=== PATIENT | female | born 1980 | race Caucasian/White ===

== ENCOUNTER → 2016-12-18 | Outpatient (CLI) | payer OTHER ==
[2016-12-19 08:16] LABS: HIV-1/HIV-2 Ab Screen NONREAC (NON REAC)
== END | disposition home or self-care (01) ==
LOC: LABWHC1 08:28
PROVIDERS: ATTEND Obstetrics & Gynecology
DX: L65.9 Nonscarring hair loss, unspecified (principal); R63.5 Abnormal weight gain; Z13.220 Encounter for screening for lipoid disorders; Z13.1 Encounter for screening for diabetes mellitus
CPT/HCPCS: 36415; 80061; 82947; 84439; 84443; 86780; 87389

== ENCOUNTER → 2018-01-07 | Outpatient (CLI) | payer OTHER ==
[2018-01-07 09:44] LABS: Basophils % (A) 0 %; Eosinophils # (A) 0.1 k/uL (0-0.7); Eosinophils % (A) 2 %; HCT 40.4 % (34.0-46.0); HGB 13.4 gm/dL (11.4-16.0); Lymphocytes # (A) 1.6 k/uL (1.0-4.8); Lymphocytes % (A) 33 %; MCH 30.3 pg (25.0-35.0); MCHC 33.2 g/dL (31.0-37.0); MCV 91.2 fL (80.0-100.0); Mean Platelet Volume 7.5; Monocytes # (A) 0.4 k/uL (0-1.0); Monocytes % (A) 7 %; Neutrophils # (A) 2.8 k/uL (1.3-7.7); Neutrophils % (A) 56 %; Platelet Count 251 k/uL (150-450); RBC 4.43 m/uL (3.80-5.40); RDW 12.6 % (11.5-15.5); WBC 4.9 k/uL (3.8-10.6)
[2018-01-07 10:09] LABS: ALT 18 U/L (9-52); AST 23 U/L (14-36); Albumin 4.3 g/dL (3.5-5.0); Alkaline Phosphatase 66 U/L (38-126); Anion Gap 10 mmol/L; Blood Urea Nitrogen 9 mg/dL (7-17); Calcium 9.4 mg/dL (8.4-10.2); Carbon Dioxide 26 mmol/L (22-30); Chloride 105 mmol/L (98-107); Cholesterol 215 mg/dL (<200); Glucose 81 mg/dL (74-99); HDL Cholesterol 76 mg/dL (40-60); LDL Cholesterol,Calculated 123 mg/dL (0-99); Potassium 4.2 mmol/L (3.5-5.1); Sodium 141 mmol/L (137-145); Total Bilirubin 0.4 mg/dL (0.2-1.3); Triglycerides 81 mg/dL (<150)
--- NOTE | 2018-01-07 10:48 | XR ---
EXAMINATION TYPE: XR chest 2V DATE OF EXAM: 01/07/2018 CLINICAL HISTORY: R06.00 Dyspenea,M54.5 LBP TECHNIQUE: Frontal and lateral views of the chest are obtained. COMPARISON: None FINDINGS: There is no focal air space opacity, pleural effusion, or pneumothorax seen. The cardiac silhouette size is within normal limits. The osseous structures are intact. IMPRESSION: No acute cardiopulmonary process.
--- NOTE | 2018-01-07 10:51 | XR ---
EXAMINATION TYPE: XR lumbar spine 2 or 3V DATE OF EXAM: 01/07/2018 CLINICAL HISTORY: pain TECHNIQUE: Three views of the lumbar spine are submitted. COMPARISON: None. FINDINGS: There are 5 lumbar type vertebral bodies identified. The lumbar spine shows satisfactory alignment w ithout evidence of acute fracture or dislocation. Vertebral body heights are within normal limits. Disc spaces are within normal limits. The overlying soft tissue appears unremarkable. IMPRESSION: No acute fracture or dislocation is seen in the lumbar spine. ICD 10 NO FRACTURE, INITIAL EVALUATION
[2018-01-07 11:06] LABS: Erythrocyte Sedimentation Rate 7 mm/hr (0-20)
[2018-01-07 16:27] LABS: Hepatitis B Surface AB- Quant 30.1 mIU/mL; Hepatitis C IgG Antibody Non-Reactive (Non-Reactive)
[2018-01-07 17:50] LABS: HIV AB P24 Non-Reactive (Non-Reactive); HIV P24 AG Non-Reactive (Non-Reactive)
== END | disposition home or self-care (01) ==
LOC: CPPFTMAIN 08:49
PROVIDERS: ATTEND Internal Medicine
DX: R06.00 Dyspnea, unspecified (principal); M54.5 Low back pain; R53.83 Other fatigue; Z11.3 Encounter for screening for infections with a predominantly sexual mode of transmission; Z13.6 Encounter for screening for cardiovascular disorders
CPT/HCPCS: 71046; 72100; 80053; 80061; 84439; 84443; 84481; 85025; 85652; 86706; 86780; 86803; 87340; 87390; 94060; 94726; 94729

== ENCOUNTER 2019-03-26 18:07 | Observation (INO) | payer OTHER ==
[2019-03-26 18:55] LABS: Appearance,Urine Clear (Clear); Bilirubin,Urine Negative (Negative); Blood,Urine Negative (Negative); Color,Urine Colorless; Glucose,Urine (UA) Negative (Negative); Ketones,Urine Negative (Negative); Leukocyte Esterase,Urine Negative (Negative); Nitrite,Urine Negative (Negative); Protein,Urine Negative (Negative); Specific Gravity,Urine 1.004 (1.001-1.035); Urobilinogen,Urine <2.0 mg/dL (<2.0)
[2019-03-26] MEDS ORDERED: SODIUM CHLORIDE 0.9% 1,000 ML IV STA (19:00)
--- NOTE | 2019-03-26 19:14 | ED ---
General Adult HPI <Jed Neely - Last Filed: 03/26/19 21:25> - General Source: patient Mode of arrival: ambulatory Limitations: no limitations <Karen Fraser - Last Filed: 03/26/19 21:59> - General Chief complaint: Recheck/Abnormal Lab/Rx Stated complaint: Weakness, balance issues Time Seen by Provider: 03/26/19 18:42 - History of Present Illness Initial comments: 38 year-old female patient presents to the emergency department today for evaluation of disturbed gait. Patient states that she got out of bed this morning she stood up and immediately had a fall. Patient states that she has felt like she is going to fall throughout the day. Patient states she has tripped over things and fall and a total of 3 times today. Patient states is very abnormal for her. Patient states that her body feels weird like a "feather". Patient denies any dizziness, room spinning, headache, blurred visi on, or double vision. Patient denies any ear pain. Patient states she does play hockey and has had head injuries. States she does wear helmet while playing hockey. She denies any use of anticoagulant medications. Patient denies any numbness or tingling to her extremities. Denies any focal weakness. Patient denies any recent rash, fever, chills, shortness breath, chest pain, abdominal pain, nausea, vomiting, diarrhea, constipation, back pain, hematuria, dysuria, urinary urgency, urinary frequency, or any other complaints. (Karen Fraser) - Related Data Home Medications Medication Instructions Recorded Confirmed ALPRAZolam [Xanax] 0.5 mg PO DAILY PRN 03/26/19 03/26/19 valACYclovir [Valtrex] 500 mg PO HS 03/26/19 03/26/19 Allergies Allergy/AdvReac Type Severity Reaction Status Date / Time No Known Allergies Allergy Verified 03/26/19 21:35 Review of Systems ROS Other: All systems not noted in ROS Statement are negative. <Jed Neely - Last Filed: 03/26/19 21:25> ROS Other: All systems not noted in ROS Statement are negative. <Karen Fraser - Last Filed: 03/26/19 21:59> ROS Statement: Those systems with pertinent positive or pertinent negative responses have been documented in the HPI. Past Medical History Past Medical History: No Reported History History of Any Multi-Drug Resistant Organisms: None Reported Past Surgical History: No Surgical Hx Reported Past Psychological History: No Psychological Hx Reported Smoking Status: Never smoker Past Alcohol Use History: Occasional Past Drug Use History: Marijuana <BriaMoyKaren Marco Antonio - Last Filed: 03/26/19 21:59> General Exam Limitations: no limitations General appearance: alert, in no apparent distress, other (This is a well- developed, well-nourished adult female patient in no acute distress. Vital signs upon presentation are temperature 98.7F, pulse 67, respirations 18, blood pressure 132/89, pulse ox 100% on room air per) Eye exam: Present: normal appearance, PERRL, EOMI, nystagmus (Horizontal bilateral, and vertical with upward gaze.). Absent: scleral icterus, conjunctival injection, periorbital swelling ENT exam: Present: normal exam, normal oropharynx, mucous membranes moist, TM's normal bilaterally Respiratory exam: Present: normal lung sounds bilaterally. Absent: respiratory distress, wheezes, rales, rhonchi, stridor Cardiovascular Exam: Present: regular rate, normal rhythm, normal heart sounds. Absent: systolic murmur, diastolic murmur, rubs, gallop, clicks GI/Abdominal exam: Present: soft, normal bowel sounds. Absent: distended, tenderness, guarding, rebound, rigid Neurological exam: Present: alert, oriented X3, CN II-XII intact Expanded Speech: Present: fluid speech Cranial nerves: EOM's Intact: Normal Motor strength exam: RUE: 5, LUE: 5, RLE: 5, LLE: 5 Psychiatric exam: Present: normal affect, normal mood Skin exam: Present: warm, dry, intact, normal color. Absent: rash <Karen Fraser M - Last Filed: 03/26/19 21:59> Course Vital Signs 03/26/19 03/26/19 03/26/19 18:09 19:54 21:00 Temperature 98.7 F Pulse Rate 67 56 L 67 Respiratory 18 16 16 Rate Blood Pressure 132/89 126/73 119/75 O2 Sat by Pulse 100 96 97 Oximetry EKG Findings - EKG Comments: EKG Findings:: EKG obtained at 1949 shows sinus bradycardia with a ventricular rate of 59, GA interval 182, QRS duration 80, QT 418, QTC 413. No evidence of ST elevation or depression. <Karen Fraser - Last Filed: 03/26/19 21:59> Medical Decision Making - Lab Data Result diagrams: 03/26/19 18:56 03/26/19 18:56 <Jed Neely - Last Filed: 03/26/19 21:25> - Lab Data Result diagrams: 03/26/19 18:56 03/26/19 18:56 - Radiology Data Radiology results: report reviewed, image reviewed <Karen Fraser - Last Filed: 03/26/19 21:59> - Medical Decision Making Case was discussed with practitioner Bria. Chart was reviewed. Case also discussed with Dr. Hale. He will admit covering for Dr. Beach. Patient will have MRI ordered and neurology consult. (Jed Neely) 38 year-old female patient presented to the emergency department today for evaluation of gait disturbance and frequent falls starting this morning around 0800. Physical examination did reveal horizontal and vertical upward gaze nystagmus. Remainder of physical exam is unremarkable. She is otherwise neurologically intact with no focal deficits. Labs reviewed and are unremarkable. She is not . A CT brain was negative for any acute findings. I did discuss the case with my attending Dr. Neely, we'll admit to the hospital for further evaluation by neurology and MRI. Patient will be placed on frequent neurochecks and fall precautions. (Karen Fraser) - Lab Data Lab Results 03/26/19 03/26/19 03/26/19 Range/Units 18:38 18:38 18:56 WBC 6.7 (3.8-10.6) k/uL RBC 4.18 (3.80-5.40) m/uL Hgb 12.5 (11.4-16.0) gm/dL Hct 38.3 (34.0-46.0) % MCV 91.5 (80.0-100.0) fL MCH 29.8 (25.0-35.0) pg MCHC 32.6 (31.0-37.0) g/dL RDW 12.4 (11.5-15.5) % Plt Count 256 (150-450) k/uL Neutrophils % 61 % Lymphocytes % 28 % Monocytes % 8 % Eosinophils % 2 % Basophils % 0 % Neutrophils # 4.1 (1.3-7.7) k/uL Lymphocytes # 1.9 (1.0-4.8) k/uL Monocytes # 0.5 (0-1.0) k/uL Eosinophils # 0.1 (0-0.7) k/uL Basophils # 0.0 (0-0.2) k/uL PT (9.0-12.0) sec INR (<1.2) APTT (22.0-30.0) sec Sodium (137-145) mmol/L Potassium (3.5-5.1) mmol/L Chloride (98-107) mmol/L Carbon Dioxide (22-30) mmol/L Anion Gap mmol/L BUN (7-17) mg/dL Creatinine (0.52-1.04) mg/dL Est GFR (CKD-EPI)AfAm (>60 ml/min/1.73 sqM) Est GFR (CKD-EPI)NonAf (>60 ml/min/1.73 sqM) Glucose (74-99) mg/dL Calcium (8.4-10.2) mg/dL Magnesium (1.6-2.3) mg/dL Total Bilirubin (0.2-1.3) mg/dL AST (14-36) U/L ALT (9-52) U/L Alkaline Phosphatase (38-126) U/L Troponin I (0.000-0.034) ng/mL Total Protein (6.3-8.2) g/dL Albumin (3.5-5.0) g/dL TSH (0.465-4.680) mIU/L Urine Color Colorless Urine Appearance Clear (Clear) Urine pH 7.0 (5.0-8.0) Ur Specific [place] 1.004 (1.001-1.035) Urine Protein Negative (Negative) Urine Glucose (UA) Negative (Negative) Urine Ketones Negative (Negative) Urine Blood Negative (Negative) Urine Nitrite Negative (Negative) Urine Bilirubin Negative (Negative) Urine Urobilinogen <2.0 (<2.0) mg/dL Ur Leukocyte Esterase Negative (Negative) Urine HCG, Qual Not Detected (Not Detectd) 03/26/19 03/26/19 03/26/19 Range/Units 18:56 18:56 18:56 WBC (3.8-10.6) k/uL RBC (3.80-5.40) m/uL Hgb (11.4-16.0) gm/dL Hct (34.0-46.0) % MCV (80.0-100.0) fL MCH (25.0-35.0) pg MCHC (31.0-37.0) g/dL RDW (11.5-15.5) % Plt Count (150-450) k/uL Neutrophils % % Lymphocytes % % Monocytes % % Eosinophils % % Basophils % % Neutrophils # (1.3-7.7) k/uL Lymphocytes # (1.0-4.8) k/uL Monocytes # (0-1.0) k/uL Eosinophils # (0-0.7) k/uL Basophils # (0-0.2) k/uL PT 10.5 (9.0-12.0) sec INR 1.0 (<1.2) APTT 24.0 (22.0-30.0) sec Sodium 141 (137-145) mmol/L Potassium 3.7 (3.5-5.1) mmol/L Chloride 105 (98-107) mmol/L Carbon Dioxide 27 (22-30) mmol/L Anion Gap 9 mmol/L BUN 12 (7-17) mg/dL Creatinine 0.59 (0.52-1.04) mg/dL Est GFR (CKD-EPI)AfAm >90 (>60 ml/min/1.73 sqM) Est GFR (CKD-EPI)NonAf >90 (>60 ml/min/1.73 sqM) Glucose 90 (74-99) mg/dL Calcium 9.4 (8.4-10.2) mg/dL Magnesium 2.1 (1.6-2.3) mg/dL Total Bilirubin 0.4 (0.2-1.3) mg/dL AST 18 (14-36) U/L ALT 17 (9-52) U/L Alkaline Phosphatase 62 (38-126) U/L Troponin I <0.012 (0.000-0.034) ng/mL Total Protein 7.0 (6.3-8.2) g/dL Albumin 4.1 (3.5-5.0) g/dL TSH (0.465-4.680) mIU/L Urine Color Urine Appearance (Clear) Urine pH (5.0-8.0) Ur Specific [place] (1.001-1.035) Urine Protein (Negative) Urine Glucose (UA) (Negative) Urine Ketones (Negative) Urine Blood (Negative) Urine Nitrite (Negative) Urine Bilirubin (Negative) Urine Urobilinogen (<2.0) mg/dL Ur Leukocyte Esterase (Negative) Urine HCG, Qual (Not Detectd) 03/26/19 Range/Units 18:56 WBC (3.8-10.6) k/uL RBC (3.80-5.40) m/uL Hgb (11.4-16.0) gm/dL Hct (34.0-46.0) % MCV (80.0-100.0) fL MCH (25.0-35.0) pg MCHC (31.0-37.0) g/dL RDW (11.5-15.5) % Plt Count (150-450) k/uL Neutrophils % % Lymphocytes % % Monocytes % % Eosinophils % % Basophils % % Neutrophils # (1.3-7.7) k/uL Lymphocytes # (1.0-4.8) k/uL Monocytes # (0-1.0) k/uL Eosinophils # (0-0.7) k/uL Basophils # (0-0.2) k/uL PT (9.0-12.0) sec INR (<1.2) APTT (22.0-30.0) sec Sodium (137-145) mmol/L Potassium (3.5-5.1) mmol/L Chloride (98-107) mmol/L Carbon Dioxide (22-30) mmol/L Anion Gap mmol/L BUN (7-17) mg/dL Creatinine (0.52-1.04) mg/dL Est GFR (CKD-EPI)AfAm (>60 ml/min/1.73 sqM) Est GFR (CKD-EPI)NonAf (>60 ml/min/1.73 sqM) Glucose (74-99) mg/dL Calcium (8.4-10.2) mg/dL Magnesium (1.6-2.3) mg/dL Total Bilirubin (0.2-1.3) mg/dL AST (14-36) U/L ALT (9-52) U/L Alkaline Phosphatase (38-126) U/L Troponin I (0.000-0.034) ng/mL Total Protein (6.3-8.2) g/dL Albumin (3.5-5.0) g/dL TSH 1.040 (0.465-4.680) mIU/L Urine Color Urine Appearance (Clear) Urine pH (5.0-8.0) Ur Specific [place] (1.001-1.035) Urine Protein (Negative) Urine Glucose (UA) (Negative) Urine Ketones (Negative) Urine Blood (Negative) Urine Nitrite (Negative) Urine Bilirubin (Negative) Urine Urobilinogen (<2.0) mg/dL Ur Leukocyte Esterase (Negative) Urine HCG, Qual (Not Detectd) - Radiology Data CT brain without contrast was obtained. Report is reviewed in its entirety. Impression by Dr. Loredo shows negative computed tomography scan of the brain. (Karen Fraser) Disposition <Jed Neely - Last Filed: 03/26/19 21:25> Decision to Admit Reason: Admit from EC Decision Date: 03/26/19 Decision Time: 21:59 <Karen Fraser - Last Filed: 03/26/19 21:59> Clinical Impression: Gait disturbance, Frequent falls Narrative: Concern for CVA (Karen Fraser) Disposition: ADMITTED IP TO THIS [facility] Condition: Serious Referrals: Zaheer Phipps MD [Primary Care Provider] - 1-2 days
[2019-03-26 19:24] LABS: Basophils % (A) 0 %; Eosinophils # (A) 0.1 k/uL (0-0.7); Eosinophils % (A) 2 %; HCT 38.3 % (34.0-46.0); HGB 12.5 gm/dL (11.4-16.0); Lymphocytes # (A) 1.9 k/uL (1.0-4.8); Lymphocytes % (A) 28 %; MCH 29.8 pg (25.0-35.0); MCHC 32.6 g/dL (31.0-37.0); MCV 91.5 fL (80.0-100.0); Mean Platelet Volume 7.2; Monocytes # (A) 0.5 k/uL (0-1.0); Monocytes % (A) 8 %; Neutrophils # (A) 4.1 k/uL (1.3-7.7); Neutrophils % (A) 61 %; Platelet Count 256 k/uL (150-450); RBC 4.18 m/uL (3.80-5.40); RDW 12.4 % (11.5-15.5); WBC 6.7 k/uL (3.8-10.6)
[2019-03-26 19:36] LABS: ALT 17 U/L (9-52); AST 18 U/L (14-36); African American GFR (CKD) >90 (>60 ml/min/1.73 sqM); Albumin 4.1 g/dL (3.5-5.0); Alkaline Phosphatase 62 U/L (38-126); Anion Gap 9 mmol/L; Blood Urea Nitrogen 12 mg/dL (7-17); Calcium 9.4 mg/dL (8.4-10.2); Carbon Dioxide 27 mmol/L (22-30); Chloride 105 mmol/L (98-107); Glucose 90 mg/dL (74-99); Magnesium 2.1 mg/dL (1.6-2.3); Potassium 3.7 mmol/L (3.5-5.1); Sodium 141 mmol/L (137-145); Total Bilirubin 0.4 mg/dL (0.2-1.3)
--- NOTE | 2019-03-26 19:36 | CT ---
EXAMINATION TYPE: CT brain wo con DATE OF EXAM: 03/26/2019 COMPARISON: None HISTORY: weakness, balance issues CT DLP: 1095.4 mGycm. Automated Exposure Control for Dose Reduction was Utilized. TECHNIQUE: CT scan of the head is performed without contrast. FINDINGS: Ventricles and sulci appear normal. There is no mass effect nor midline shift. There is no sign of intracranial hemorrhage. Calvarium is intact. IMPRESSION: Negative CT scan of the brain.
[2019-03-26 19:37] LABS: Prothrombin Time 10.5 sec (9.0-12.0)
[2019-03-26] MEDS ORDERED: ASPIRIN 81 MG PO STA (21:27)
[2019-03-26] MEDS ORDERED: NALOXONE 0.4 MG/ML 1 ML VIAL IV PRN (21:55)
[2019-03-27] MEDS: ALPRAZolam 0.5 MG TAB PO PRN ×2 (00:32→14:06)
[2019-03-27] MEDS: valACYclovir 500 MG TAB PO SCH ×2 (00:32→20:05)
[2019-03-27] MEDS ORDERED: ENOXAPARIN 40 MG/0.4 ML SYRINGE SQ SCH (10:15)
--- NOTE | 2019-03-27 15:45 | MR ---
EXAMINATION TYPE: MR brain wo/w con DATE OF EXAM: 03/27/2019 COMPARISON: CT brain from yesterday HISTORY: abnormal gait TECHNIQUE: Multiplanar, multisequence images of the brain and brainstem is performed without and with IV contras t, utilizing 7 mL intravenous Gadavist . FINDINGS: Diffusion weighted images demonstrate no evidence of a recent infarct or other diffusion ab normality. There is no extra-axial fluid collection or significant white matter signal abnormality. The ventricular system and cisternal spaces are normal in size and appearance. The brain volume is age appropriate. Midline structures demonstrate normal morphology. The craniocervical junction appears within normal limits. Post contrast images demonstrate no abnormal enhancement. The dural venous sinuses appear pa tent. The visualized sinuses are clear. Globes are slightly distorted by artifact on MRI. No suspicio us fluid signal bilateral mastoid air cells. IMPRESSION: Unremarkable study.
--- NOTE | 2019-03-27 18:28 | CONS ---
CONSULTATION DATE OF SERVICE: 03/27/2019 HISTORY OF PRESENT ILLNESS: Thank you for allowing me to evaluate Miriam Kendall, who is a 38-year-old right- handed white female who presented to [facility] [place] for evaluation of gait imbalance which was present upon awakening yesterday morning. The day before these symptoms, the patient was at baseline although states that she felt tired. She states she got her regular 8 hours of sleep, but when she woke up was off balance and "tripping and falling." She states she was not consistently veering in one direction at home and denied any recent trauma. She does play hockey but states that she has not played in the past 2 weeks. She has never had similar symptoms in the past. She denied associated vertigo, diplopia, dysarthria, difficulty chewing/swallowing or focal in the extremities. She denies numbness involving the upper or lower extremities. She feels that strength in the upper extremities is "pretty good" and strength in the lower extremities may be mildly reduced. She denies neck or back pain and denies Lhermitte's phenomenon. She has had no history of transient neurologic dysfunction such as transient monocular blindness, transient focal weakness/numbness in the extremities or Lhermitte's. She denies fever, chills or sweats. She denies urine/stool incontinence, urinary urgency or loss in sensation in the genital/rectal region. She denies any recent viral illness. Today the patient states her balance is better than it was yesterday but not back to baseline. She states when she is up on her feet, she feels "light like a feather." The patient does report a history of depression, anxiety and panic attacks. She is maintained on Prozac and Xanax but admits that she does get anxiety "a lot," particularly characterized by a sensation that she "can't breathe." She states she has good coping mechanisms and has only taken Xanax 3 times over the past month, although states that when she initially was placed on Prozac, she was able to significantly reduce her Xanax consumption. More recently she has had to use this occasionally. She does report significant stress related primarily to her work. 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 She also has a 12-year-old daughter whom she describes as being "mean." ALLERGIES: NO KNOWN DRUG ALLERGIES. HOME MEDICATIONS: 1. Valtrex. 2. Xanax (taken 3 times over the past month). 3. Prozac. PAST MEDICAL HISTORY: 1. Seasonal depression. 2. Anxiety. 3. Panic attacks. 4. Genital herpes. She states when she develops anxiety, she will contact her mother, who will help talk to her. PAST SURGICAL HISTORY: 1. Tonsillectomy. 2. Adenoidectomy. 3. Breast implants. 4. Pre-melanoma skin resections. SOCIAL HISTORY: The patient denied tobacco use and drinks alcohol about 3 times per month. She does vape marijuana but denied any other illicit drug use. She is single with a 12-year-old daughter and lives in a house with her daughter. She is employed as a social director. FAMILY HISTORY: Patient's mother has hypothyroidism. Father has hypertension. She has a cousin with a history of seizures. There is no family history of multiple sclerosis or other neurologic disease. REVIEW OF SYSTEMS: Fourteen systems are reviewed and no additional complaints are identified. The review of systems is documented in the history and physical. PHYSICAL EXAMINATION: When I arrived in the patient's room, she was lying in bed, receptive to the examiner. Mother and friend were at the bedside. The patient's affect is mildly flat and she appears stated age. VITAL SIGNS: Blood pressure is 106/48 with a pulse of 70, respiratory rate 16, temperature 98.1. Weight is 74.5 kg on a 5-foot 8-inch frame. SKIN AND EXTREMITIES: Normal. HEAD AND NECK: No tenderness or signs of trauma. Neck is supple without meningeal signs. The arteries are nontender and without bruits. HEART: Regular rate and rhythm. HIGHER CORTICAL FUNCTION: MENTAL STATUS: The patient was alert and oriented to time, place and person. She was able to name, repeat and read. There was no right/left disorientation, finger agnosia, extinction to double simultaneous stimulation or dysarthria. CRANIAL NERVES II THROUGH XII: II: Pupils are equal and reactive to light symmetrically. No afferent pupillary defect. Visual romero are intact to confrontation, with each eye assessed individually. III, IV, : No ptosis. Extraocular movements are full. No nystagmus. V: Pinprick and light touch intact in all 3 divisions. Motor 5 intact. VII: No facial asymmetry or weakness. VIII: Acuity intact to finger rub. IX, X: Palate ritchie in the midline. XI: Trapezius strength intact. XII: Tongue protruded midline without fasciculation or atrophy. MOTOR EXAMINATION: There is no pronator drift. Normal bulk and tone is noted in all major muscle groups with no involuntary movements noted. Strength is 5/5 throughout. Sensory intact to pinprick and light touch in all extremities. There was no sensory level across the chest. Vibratory sensation was entirely intact at the great toes. is intact. Reflexes, right side listed first: biceps 2,2; brachioradialis 1,1; triceps 2,2; patella 2,2; ankle 2,2. Plantar response is flexor bilaterally. Maynard's is absent. COORDINATION: [id number], [id number] movements are intact. Rapid alternating movements are symmetric with finger tapping. GAIT AND STATION: Patient was able to rise from a seated position without difficulty. She ambulated with a narrow-based gait. She tended to lean slightly backward and stated she felt like a "feather." She was able to heel- and toe-walk. With Romberg testing, the patient fell into the examiner's arms to the right. This appeared functional in nature. DIAGNOSTIC TESTING: Patient had an MRI of the brain completed with and without contrast which was read as normal. CT of the brain was negative. LAB WORK: Lab work demonstrates a white blood cell count of 6.7, hemoglobin of 12.5, platelet count 256. Sodium 141, potassium 3.7, BUN 12 with creatinine of 0.59. INR 1.0. Calcium 9.4, magnesium 2.1. ALT 17, AST 18. Troponin negative. TSH within normal limits. Urinalysis revealed negative nitrite and leukocyte esterase. Urine screen negative. IMPRESSION: 1. Gait imbalance upon awakening yesterday morning, of unclear etiology as the patient's neurologic examination is well maintained without focal features, long tract signs, ataxia or sensory loss. In addition, CT of the brain without contrast and MRI of the brain with and without contrast were unrevealing, without evidence of acute ischemia, demyelinating lesions or enhancing lesions, and exam is not consistent with Guillain-Odessa syndrome. The possibility of somatization needs to be considered. 2. Significant stressors, particularly related to the patient's work. 3. Depression, anxiety and panic attacks. The patient is maintained on Prozac/Xanax. RECOMMENDATIONS: I discussed my impression and plan with the patient and her mother, and they expressed understanding. Results of diagnostic testing were discussed with them. Case was also discussed with Dr. Hale, who plans to transfer the patient to [facility] for an additional opinion. Thank you for allowing me to participate in the care of your patient. MMPATRICIA / BETSYN: [id number] /
[2019-03-27 20:07] VITALS: PULSE 65
--- NOTE | 2019-03-27 20:45 | P.HPIM ---
History of Present Illness H&P Date: 03/27/19 Chief Complaint: difficulty walking history of presenting complaint: This is a very pleasant 68-year-old patient of Dr. Zaheer Beach. Unremarkable past medical histor Patient came back from work yesterday felt Went to sleep slept for about 4 hours and then slept under the 6 hours afafter that. Patient noticed that she became unsteady on her Was tending to fall. Unclearfrom one side or the other. It could came to the point that She started falling. Denied any fever or chills. no headache or a change in vision. No injury of back injury. No change in bowel or urine pattern. Patient admitted for the same. Initial computed tomography scan Of the brain was unremarkable Review of systems: GEN.: [tired] EYES: [None] HEENT: [None] NECK: [None] RESPIRATORY: [None] CARDIOVASCULAR: [None] GASTROINTESTINAL: [None] GENITOURINARY: [None] MUSCULOSKELETAL: [None] LYMPHATICS: [None] HEMATOLOGICAL: [None] PSYCHIATRY: [None] NEUROLOGICAL: [s above] Past medical history: Asthma as a child social history: Lives alone. has a 12-year-old child. 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 Alcohol occasionally.does marijuana occasionally Physical examination: VITAL SIGNS: [98.7,57, 18, 132/89, 100% room air] GENERAL: [BMI 25, sitting up, comfortable]. EYES: [Pupils equal. Conjunctiva jairo]l. HEENT: [External appearance of nose and ears normal, oral cavity grossly normal]. NECK: [JVD not raised; masses not palpable]. HEART: [First and second heart sounds are normal; no edema]. LUNGS:[ Respiratory rate normal; clear to auscultation]. ABDOMEN: [Soft, nontender, liver spleen not palpable, no masses palpable]. PSYCH: [Alert and oriented x3; mood and affect jairo]l. NEUROLOGICAL: [Cranial nerves grossly intact; no facial asymmetry, power equal and symmetrical bilaterally. Sensation grossly normal. Slight hyperreflexia on the lower ex Extremity. Both the plantars are downgoing. Romberg sign positive.]. LYMPHATICS: [No lymph nodes palpable in the axilla and neck] investigations, reviewed in the cli clinical context: computed tomography scan of the brain-unremarkable. EKG-tracing personally reviewed by me shows sinus rhythm MRI of the brain-acute negative white count 6.7, hemoglobin 12.5, pplatelets 256 renal function normal potassium 3.7 Assessment: -This is a patient with unremarkab past medical history, presents with acute onset of gai gait dysfunction to the point of falling. Patient is slightly hyperreflexi in the lower extremity, with plantars downgoing, and preserve sensation. Some discoordination on the left Extremity lower. Gait dysfunction. Patient has no nystagmus no cranial nerve deficiency. On Exam. -recreational marijuana use occasional Plan: Care was discussed this morning with the patient her father and a sister at length. Later on MRI results came [place] As above. I discussed with Dr. Yoni storm The neurologist. He felt it could be a conversion disorder. Some further testing will need t Before we can make the diagnosis. His coverage ends at 5:00 today. No further neurology coverage after that. I did discuss with him my concer that at this pointrelated more concrete investigation before we can call it a conversion disorder.we will go back and talk to the patient about the Same. Past Medical History Past Medical History: Asthma History of Any Multi-Drug Resistant Organisms: None Reported Past Surgical History: Adenoidectomy, Breast Surgery, Tonsillectomy Additional Past Surgical History / Comment(s): cyst on ankle removed, pre melanoma hip samples taken]. Past Anesthesia/Blood Transfusion Reactions: Postoperative Nausea & Vomiting (PONV) Additional Past Anesthesia/Blood Transfusion Reaction / Comment(s): anesthesia after surg Past Psychological History: No Psychological Hx Reported Smoking Status: Never smoker Past Alcohol Use History: Occasional Past Drug Use History: Marijuana - Past Family History Mother Additional Family Medical History / Comment(s): uncle/ grandma heart attack, stroke, kidney. Medications and Allergies Home Medications Medication Instructions Recorded Confirmed Type ALPRAZolam [Xanax] 0.5 mg PO DAILY PRN 03/26/19 03/26/19 History valACYclovir [Valtrex] 500 mg PO HS 03/26/19 03/26/19 History Allergies Allergy/AdvReac Type Severity Reaction Status Date / Time No Known Allergies Allergy Verified 03/26/19 21:35 Physical Exam Vitals: Vital Signs Temp Pulse Pulse Resp BP BP Pulse Ox 03/27/19 12:00 64 16 101/51 100 03/27/19 11:38 16 03/27/19 08:00 98.1 F 67 16 102/64 100 03/27/19 04:00 98.2 F 68 16 107/65 97 03/26/19 23:53 98.2 F 71 16 127/72 100 03/26/19 21:00 75 18 116/69 97 03/26/19 19:54 56 L 16 126/73 96 03/26/19 18:09 98.7 F 67 18 132/89 100 Intake and Output 03/26/19 03/27/19 03/27/19 22:59 06:59 14:59 Intake Total 120 Balance 120 Intake: Oral 120 Other: Voiding Method Toilet Toilet # Voids 2 2 Weight 72.575 kg 74.5 kg Results CBC & Chem 7: 03/26/19 18:56 03/26/19 18:56 Thrombosis Risk Factor Assmnt - Choose All That Apply Each Factor Represents 1 point: or Thrombosis Risk Factor Assessment Total Risk Factor Score: 1 Thrombosis Risk Factor Assessment Level: Low Risk
[2019-03-27 22:44] VITALS: BP 111/64; RESP 16; TEMP 98.6
--- NOTE | 2019-03-29 00:07 | P.DS ---
Providers Date of admission: 03/26/19 21:27 Expected date of discharge: 03/27/19 Attending physician: Abner Hale Consults: 03/26/19 21:55 Consult Physician Routine Consulting Provider: Vineet Vallejo Reason/Comments: Gait disturbance; Frequent falls; Concern for CVA Do you want consulting provider notified?: Yes Primary care physician: [facility] Course: Chief Complaint: difficulty walking Hospital course: This is a very pleasant 68-year-old patient of Dr. Zaheer eBach. Unremarkable past medical histor Patient came back from work yesterday felt Went to sleep slept for about 4 hours and then slept under the 6 hours afafter that. Patient noticed that she became unsteady on her Was tending to fall. Unclearfrom one side or the other. It could came to the point that She started falling. Denied any fever or chills. no headache or a change in vision. No injury of back injury. No change in bowel or urine pattern. Patient admitted for the same. On exam patient had slight hyperreflexia lower extremity and a possible discoordination of the left lower extremity. Cranial nerve exam was unremarkable. Patient's computed tomography scan of the brain and the MRI report came back negative. Care was discussed with Dr. Vallejo from neurology. He thought this could be a conversion disorder. Given the patient's young age and no cause for the same I was concerned about other causes to be ruled out before he can label this is a conversion disorder. Patient is still having trouble walking. Romberg sign was positive. Dyspneic at length with the patient and the mother. They agreed to be transferred to [facility] for higher level of care. It may be noted neurology service was not available after 5 PM today. Spoke to the accepting physician from neurologic neurology service at [facility]. Discussion discharge planning more than 35 minutes Consultations: Dr. Vallejo from neurology Physical examination: VITAL SIGNS: [97.7, 65, 18, 115/73, 100% room air] GENERAL: [BMI 25, sitting up, comfortable]. EYES: [Pupils equal. Conjunctiva jairo]l. HEENT: [External appearance of nose and ears normal, oral cavity grossly normal]. NECK: [JVD not raised; masses not palpable]. HEART: [First and second heart sounds are normal; no edema]. LUNGS:[ Respiratory rate normal; clear to auscultation]. ABDOMEN: [Soft, nontender, liver spleen not palpable, no masses palpable]. PSYCH: [Alert and oriented x3; mood and affect jairo]l. NEUROLOGICAL: [Cranial nerves grossly intact; no facial asymmetry, power equal and symmetrical bilaterally. Sensation grossly normal. Slight hyperreflexia on the lower ex Extremity. Both the plantars are downgoing. Romberg sign po sitive.]. LYMPHATICS: [No lymph nodes palpable in the axilla and neck] investigations, reviewed in the cli clinical context: computed tomography scan of the brain-unremarkable. EKG-tracing personally reviewed by me shows sinus rhythm MRI of the brain-acute negative white count 6.7, hemoglobin 12.5, pplatelets 256 renal function normal potassium 3.7 Assessment: -This is a patient with unremarkab past medical history, presents with acute onset of gai gait dysfunction to the point of falling. Patient is slightly hyperreflexi in the lower extremity, with plantars downgoing, and preserve sensation. Some discoordination on the left Extremity lower. Gait dysfunction. Patient has no nystagmus no cranial nerve deficiency. On Exam. As cause undetermined. Neurology services not available. Patient is being transferred to [facility] for higher level of care. -recreational marijuana use occasional Disposition: Neurology service at [facility], [facility] Patient Condition at Discharge: Undetermined Plan - Discharge Summary Discharge Rx Participant: Yes New Discharge Prescriptions: New Enoxaparin [Lovenox] 40 mg SQ DAILY syringe Continue ALPRAZolam [Xanax] 0.5 mg PO DAILY PRN PRN Reason: Anxiety valACYclovir [Valtrex] 500 mg PO HS Discharge Medication List ALPRAZolam [Xanax] 0.5 mg PO DAILY PRN 03/26/19 [History] valACYclovir [Valtrex] 500 mg PO HS 03/26/19 [History] Enoxaparin [Lovenox] 40 mg SQ DAILY syringe 03/27/19 [Rx] Follow up Appointment(s)/Referral(s): Zaheer Phipps MD [Primary Care Provider] - 1-2 days Discharge Disposition: OTHER INSTITUTION NOT DEFINED
== END 2019-03-27 23:17 | disposition other institution (70) ==
LOC: EC 18:07 → 3SCARD 21:27
PROVIDERS: ADMIT Hospitalist; ATTEND Hospitalist
DX: R26.9 Unspecified abnormalities of gait and mobility (principal); R29.6 Repeated falls; J45.909 Unspecified asthma, uncomplicated; F33.9 Major depressive disorder, recurrent, unspecified; F41.0 Panic disorder [episodic paroxysmal anxiety]; Z79.899 Other long term (current) drug therapy; W18.09XA Striking against other object with subsequent fall, initial encounter; Z82.49 Family history of ischemic heart disease and other diseases of the circulatory system
CPT/HCPCS: 96361 ×3; 96372; 96360; 99285; 36415; 93005; 97161; 97167; 80053; 84443; 83735; 84484; 85025; 85610; 85730; 81003; 81025; 70450; 70553; G0378 ×2; J1650; A9585

== ENCOUNTER → 2020-05-31 | Outpatient (CLI) | payer OTHER ==
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
== END | disposition home or self-care (01) ==
LOC: RADXRMAIN 14:43
PROVIDERS: ATTEND Physician Assistant
DX: M25.511 Pain in right shoulder (principal); M54.2 Cervicalgia; M47.892 Other spondylosis, cervical region; M43.12 Spondylolisthesis, cervical region
CPT/HCPCS: 72050

== ENCOUNTER 2021-09-30 11:37 | Emergency (ER) | payer OTHER ==
[2021-09-30 11:50] VITALS: TEMP 98
[2021-09-30] MEDS ORDERED: CYCLOBENZAPRINE 10 MG TAB PO STA (12:17)
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
[2021-09-30 12:58] LABS: Basophils % (A) 1 %; Eosinophils # (A) 0.2 k/uL (0-0.7); Eosinophils % (A) 4 %; HCT 39.2 % (34.0-46.0); HGB 12.5 gm/dL (11.4-16.0); Lymphocytes # (A) 1.7 k/uL (1.0-4.8); Lymphocytes % (A) 31 %; MCH 30.6 pg (25.0-35.0); MCHC 31.9 g/dL (31.0-37.0); Mean Platelet Volume 7.8; Monocytes # (A) 0.4 k/uL (0-1.0); Monocytes % (A) 7 %; Neutrophils # (A) 3.2 k/uL (1.3-7.7); Neutrophils % (A) 56 %; Platelet Count 278 k/uL (150-450); RBC 4.08 m/uL (3.80-5.40); WBC 5.6 k/uL (3.8-10.6)
[2021-09-30 13:12] LABS: Partial Thromboplastin Time 23.1 sec (22.0-30.0); Prothrombin Time 10.8 sec (9.0-12.0)
[2021-09-30 13:14] LABS: ALT 15 U/L (4-34); AST 25 U/L (14-36); African American GFR (CKD) >90 (>60 ml/min/1.73 sqM); Albumin 3.9 g/dL (3.5-5.0); Alkaline Phosphatase 71 U/L (38-126); Anion Gap 3 mmol/L; Blood Urea Nitrogen 9 mg/dL (7-17); Calcium 9.7 mg/dL (8.4-10.2); Carbon Dioxide 29 mmol/L (22-30); Chloride 106 mmol/L (98-107); Glucose 80 mg/dL (74-99); Magnesium 1.9 mg/dL (1.6-2.3); Non-African American GFR(CKD) >90 (>60 ml/min/1.73 sqM); Potassium 4.1 mmol/L (3.5-5.1); Sodium 138 mmol/L (137-145); Total Bilirubin 0.5 mg/dL (0.2-1.3); Total Protein 6.9 g/dL (6.3-8.2)
[2021-09-30 14:07] LABS: Appearance,Urine Clear (Clear); Bilirubin,Urine Negative (Negative); Blood,Urine Negative (Negative); Color,Urine Yellow; Glucose,Urine (UA) Negative (Negative); Ketones,Urine Negative (Negative); Leukocyte Esterase,Urine Negative (Negative); Nitrite,Urine Negative (Negative); Protein,Urine Negative (Negative); Specific Gravity,Urine 1.021 (1.001-1.035); Urobilinogen,Urine <2.0 mg/dL (<2.0)
[2021-09-30 14:28] VITALS: BP 124/76; PULSE 82; RESP 18
== END 2021-09-30 14:25 | disposition home or self-care (01) ==
LOC: EC 11:37
DX: M54.12 Radiculopathy, cervical region (principal); R20.2 Paresthesia of skin; J45.909 Unspecified asthma, uncomplicated
CPT/HCPCS: 36415; 80053; 81003; 81025; 83735; 84484; 85025; 85610; 85730; 93005; 99284

== ENCOUNTER → 2023-12-21 | Outpatient (CLI) | payer OTHER ==
[2023-12-21 22:27] LABS: Basophils # (A) 0.04 X 10*3/uL (0.00-0.10); Basophils % (A) 0.6 %; Eosinophils # (A) 0.09 X 10*3/uL (0.04-0.35); Eosinophils % (A) 1.4 %; HCT 41.3 % (37.2-46.3); HGB 13.1 g/dL (12.0-15.0); Lymphocytes # (A) 1.61 X 10*3/uL (0.90-5.00); Lymphocytes % (A) 25.8 %; MCH 29.7 pg (27.0-32.0); MCHC 31.7 g/dL (32.0-37.0); MCV 93.7 FL (80.0-97.0); Mean Platelet Volume 11.3 FL (9.5-12.2); Monocytes # (A) 0.59 X 10*3/uL (0.20-1.00); Monocytes % (A) 9.5 %; NRBC Per 100 WBC 0 X 10*3/uL (0.00-0.01); Neutrophils # (A) 3.89 X 10*3/uL (1.80-7.70); Neutrophils % (A) 62.5 %; Platelet Count 308 X 10*3/uL (140-440); RBC 4.41 X 10*6/uL (4.10-5.20); RDW 13.2 % (11.5-14.5); WBC 6.23 X 10*3/uL (4.50-10.00)
[2023-12-21 22:55] LABS: ALT 8 U/L (8-44); AST 15 U/L (13-35); Albumin 4.4 g/dL (3.8-4.9); Albumin/Globulin Ratio 1.76 Ratio (1.60-3.17); Alkaline Phosphatase 67 U/L (41-126); BUN/Creat Ratio 13.43 Ratio (12.00-20.00); Blood Urea Nitrogen 9.4 mg/dL (9.0-27.0); Calcium 9.6 mg/dL (8.7-10.3); Carbon Dioxide 26.2 mmol/L (21.6-31.8); Chloride 103 mmol/L (96-109); Chol/HDL Ratio 3.01 Ratio; Globulin 2.5 g/dL (1.6-3.3); Glucose 90 mg/dL (70-110); LDL Cholesterol,Calculated 118.5 mg/dL (0.0-131.0); Potassium 4.1 mmol/L (3.5-5.5); Sodium 139 mmol/L (135-145); Total Bilirubin 0.6 mg/dL (0.3-1.2); Total Protein 6.9 g/dL (6.2-8.2); VLDL Calculation 14.42 mg/dL (5.00-40.00)
== END | disposition home or self-care (01) ==
LOC: LABWHC1 10:35
PROVIDERS: ATTEND Family Medicine
DX: Z00.00 Encounter for general adult medical examination without abnormal findings (principal); Z11.59 Encounter for screening for other viral diseases
CPT/HCPCS: 36415; 80053; 80061; 84443; 85025; 86803